=== PATIENT | female | born 1965 | race Caucasian/White ===

== ENCOUNTER 2017-06-07 10:50 | Day surgery (SDC) | payer BC ==
[2017-06-07] MEDS: BUPIVACAINE 0.5% (SDV) 30 ML INJ
[2017-06-07] MEDS ORDERED: LIDOCAINE 1% (MPF) 30 ML INJ (12:13)
[2017-06-07] MEDS ORDERED: POLYMYXIN/BACITRACIN 1L IRRIG (12:14)
[2017-06-07] MEDS ORDERED: DEXAMETHASONE 4 MG/ML 1 ML INJ ×3 (12:14→12:57)
[2017-06-07] MEDS ORDERED: MIDAZOLAM 1 MG/ML 2 ML INJ (12:27)
[2017-06-07] MEDS ORDERED: PROPOFOL 20 ML (12:27)
[2017-06-07] MEDS ORDERED: CEFAZOLIN 1 GM INJ (12:27)
[2017-06-07] MEDS ORDERED: ROCURONIUM 50 MG INJ (12:36)
[2017-06-07] MEDS ORDERED: POVIDONE IODINE 10% 28.4 GM OINT (12:44)
[2017-06-07] MEDS ORDERED: ONDANSETRON 4 MG INJ (12:56)
[2017-06-07] MEDS ORDERED: ACETAMINOPHEN 1000MG/100ML IV 100 ML (12:56)
[2017-06-07] MEDS ORDERED: KETOROLAC 30 MG INJ (12:57)
[2017-06-07] MEDS ORDERED: METOCLOPRAMIDE 10 MG INJ (12:57)
[2017-06-07] MEDS ORDERED: SUGAMMADEX SODIUM 200 MG/2 ML VIAL IV (12:57)
[2017-06-07] MEDS ORDERED: DIPHENHYDRAMINE 50 MG INJ IV (13:00)
[2017-06-07] MEDS ORDERED: OXYCODONE/ACETAMINOPHEN (5/325) TAB PO (13:00)
[2017-06-07] MEDS ORDERED: FENTAnyl 50 MCG/ML VIAL IV ×3 (13:00)
[2017-06-07] MEDS ORDERED: MEPERIDINE 25 MG INJ IV (13:00)
[2017-06-07] MEDS ORDERED: ONDANSETRON 4 MG INJ IV (13:00)
[2017-06-07] MEDS ORDERED: EPHEDrine SULFATE 50 MG/5 ML SYG IV (13:00)
[2017-06-07] MEDS ORDERED: METOCLOPRAMIDE 10 MG INJ IV (13:00)
[2017-06-07] MEDS ORDERED: LABETALOL HCL 20MG INJ IV (13:00)
[2017-06-07] MEDS ORDERED: HYDROmorphONE (0.2 MG/ML) 10ML SYG IV ×3 (13:00)
[2017-06-07] MEDS ORDERED: KETOROLAC 30 MG INJ IV (13:00)
[2017-06-07] MEDS ORDERED: GLYCOPYRROLATE 0.4 MG INJ (14:15)
[2017-06-07] MEDS: OXYCODONE/ACETAMINOPHEN (5/325) TAB PO (14:40)
== END 2017-06-07 16:10 | disposition home or self-care (01) ==
LOC: SDS 10:50
DX: M20.21 Hallux rigidus, right foot (principal); E66.9 Obesity, unspecified; Z68.34 Body mass index [BMI] 34.0-34.9, adult
CPT/HCPCS: 28291; 88300